=== PATIENT | male | born 1935 | race Caucasian/White ===

== ENCOUNTER 2016-10-25 16:59 | Inpatient (IN) | payer MEDICARE, OTHER ==
[~2016-10-25] VITALS: Ht 188 cm; Wt 80.7 kg
[2016-10-25] VITALS (8 sets, daily range): BP systolic 116–140; BP diastolic 64–87; PULSE 83–132; RESP 18–20; TEMP 97.8–97.9; O2SAT 97–100
[2016-10-25 17:38] LABS: MEAN CORPUSCULAR HGB CONC 29.8 % (32.0-36.0)
[2016-10-25] MEDS ORDERED: ATEN100T PO (17:38)
--- NOTE | 2016-10-25 17:38 | PD ---
HPI Chief Complaint: Cardiac Complaint Time Seen by Provider: 17:23 Travel History International Travel<30 days: No Contact w/Intl Traveler<30days: No Traveled to known affect area: No History of Present Illness HPI This 81-year-old male is complaining of shortness of breath. He says he been having increasing shortness of breath for the past 6 weeks. He says he can only walk a few steps before he gets short of breath. He has any history of atrial fibrillation for the last 2 years. He says it started when he was having surgery for a skin cancer on his left ear. He generally takes atenolol 100 mg once daily but he says that he forgot to take it today. He is not on any blood thinner. He stopped smoking about 50 or 60 years ago. He has a history of colon cancer and skin cancer which have been treated in the past. Colon cancer in . He has not been having any chest pain. He says he has passed out about 5 times in the last few weeks PFSH Past Medical History Influenza Vaccination: No Social History Alcohol Use: No Tobacco Use: No Substance Use: No Allergies-Medications (Allergen,Severity, Reaction): Coded Allergies: Penicillin (Verified Allergy, Severe, ANAPHALACTIC, 10/25/16) Reported Meds & Prescriptions Reported Meds & Active Scripts Active Reported Atenolol 100 Mg Tab 100 Mg PO DAILY Review of Systems General / Constitutional: No: Fever, Chills Eyes: No: Diploplia, Blurred Vision HENT: No: Headaches, Vertigo Cardiovascular: Positive: Palpitations, No: Chest Pain or Discomfort Respiratory: Positive: Shortness of Breath, No: Cough Gastrointestinal: No: Nausea, Vomiting Genitourinary: No: Frequency Musculoskeletal: Positive: Edema, No: Myalgias, Arthralgias Skin: No Rash, No Itching Neurologic: Positive: Weakness, Syncope Psychiatric: No: Anxiety Physical Exam Narrative GENERAL: Well-developed male. He appears quite pale SKIN: Warm and dry. HEAD: Atraumatic. Normocephalic. EYES: Pupils equal and round. No scleral icterus. No injection or drainage. ENT: No nasal bleeding or discharge. Mucous membranes pink and moist. NECK: Trachea midline. No JVD. CARDIOVASCULAR: Rapid irregular rate and rhythm. No murmur appreciated. RESPIRATORY: Coarse rales are present in the lower half of the chest bilaterally. GASTROINTESTINAL: Abdomen soft, non-tender, nondistended. Hepatic and splenic margins not palpable. MUSCULOSKELETAL: No obvious deformities. No clubbing. No cyanosis. Bilateral pedal edema NEUROLOGICAL: Awake and alert. No obvious cranial nerve deficits. Motor grossly within normal limits. Normal speech. PSYCHIATRIC: Appropriate mood and affect; insight and judgment normal. Data Data Last Documented VS Vital Signs Date Time Temp Pulse Resp B/P Pulse Ox O2 Delivery O2 Flow Rate FiO2 10/25/16 17:41 100 Room Air 10/25/16 17:20 97.9 128 20 140/80 Orders Complete Blood Count With Diff (10/25/16 17:36) Comprehensive Metabolic Panel (10/25/16 17:36) B-Type Natriuretic Peptide (10/25/16 17:36) Act Partial Throm Time (Ptt) (10/25/16 17:36) Prothrombin Time / Inr (Pt) (10/25/16 17:36) Magnesium (Mg) (10/25/16 17:36) Troponin I (10/25/16 17:36) Urinalysis - C+S If Indicated (10/25/16 17:36) Iv Access Insert/Monitor (10/25/16 17:36) Ecg Monitoring (10/25/16 17:36) Oximetry (10/25/16 17:36) Chest, Single Ap (10/25/16 17:36) Sodium Chloride 0.9% Flush (Ns Flush) (10/25/16 17:45) Furosemide Inj (Lasix Inj) (10/25/16 17:45) Atenolol (Tenormin) (10/25/16 17:45) Metoprolol Tartrate Inj (Lopressor Inj) (10/25/16 18:00) Labs Laboratory Tests Test 10/25/16 17:45 White Blood Count 7.5 TH/MM3 Red Blood Count 3.82 MIL/MM3 Hemoglobin 8.2 GM/DL Hematocrit 27.4 % Mean Corpuscular Volume 71.6 FL Mean Corpuscular Hemoglobin 21.3 PG Mean Corpuscular Hemoglobin 29.8 % Concent Red Cell Distribution Width 19.4 % Platelet Count 236 TH/MM3 Mean Platelet Volume 8.0 FL Neutrophils (%) (Auto) 77.5 % Lymphocytes (%) (Auto) 11.2 % Monocytes (%) (Auto) 9.4 % Eosinophils (%) (Auto) 1.2 % Basophils (%) (Auto) 0.7 % Neutrophils # (Auto) 5.8 TH/MM3 Lymphocytes # (Auto) 0.8 TH/MM3 Monocytes # (Auto) 0.7 TH/MM3 Eosinophils # (Auto) 0.1 TH/MM3 Basophils # (Auto) 0.1 TH/MM3 CBC Comment AUTO DIFF Prothrombin Time 11.1 SEC Prothromb Time International 1.0 RATIO Ratio Activated Partial 28.5 SEC Thromboplast Time Sodium Level 142 MEQ/L Potassium Level 3.6 MEQ/L Chloride Level 105 MEQ/L Carbon Dioxide Level 27.6 MEQ/L Anion Gap 9 MEQ/L Blood Urea Nitrogen 15 MG/DL Creatinine 0.98 MG/DL Estimat Glomerular Filtration 73 ML/MIN Rate Random Glucose 128 MG/DL Calcium Level 9.4 MG/DL Magnesium Level 2.1 MG/DL Total Bilirubin 1.0 MG/DL Aspartate Amino Transf 16 U/L (AST/SGOT) Alanine Aminotransferase 19 U/L (ALT/SGPT) Alkaline Phosphatase 126 U/L Troponin I LESS THAN 0.02 NG/ML B-Type Natriuretic Peptide 367 PG/ML Total Protein 7.6 GM/DL Albumin 3.5 GM/DL [facility] Medical Decision Making Medical Screen Exam Complete: Yes Emergency Medical Condition: Yes Medical Record Reviewed: Yes Differential Diagnosis Differential includes rapid atrial fibrillation, CHF, anemia Narrative Course EKG shows rapid atrial fibrillation. The patient forgot his medicine this morning and he has been given the oral atenolol and currently takes. I have also given him 5 mg of intravenous metoprolol. His hemoglobin has come back at 8.2. He has hyperchromic microcytic indices consistent with blood loss. A rectal exam was done. In spite of a fairly rigorous exam stool was obtained. He does have extensive hemorrhoids. Diagnosis Primary Impression: Congestive heart failure Qualified Code: I50.9 - Acute on chronic congestive heart failure, unspecified congestive heart failure type Additional Impressions: Rapid atrial fibrillation Anemia Qualified Code: D64.9 - Anemia, unspecified type Rich Earl MD Oct 25, 2016 17:38
[2016-10-25] MEDS ORDERED: FUROSEMIDE 40 MG/4 ML VIAL IVP ONE (17:45)
[2016-10-25] MEDS ORDERED: SODIUM CHLORIDE 0.9% FLUSH 5 ML FLUSH IVF PRN (17:45)
[2016-10-25] MEDS ORDERED: ATENOLOL 100 MG TAB PO ONE (17:45)
[2016-10-25 17:57] LABS: AUTOMATED NEUTROPHIL # 5.8 TH/MM3 (1.8-7.7); BASOPHIL # 0.1 TH/MM3 (0-0.2); BASOPHIL % 0.7 % (0.0-2.0); EOSINOPHIL # 0.1 TH/MM3 (0-0.4); EOSINOPHIL % 1.2 % (0.0-4.0); HEMATOCRIT 27.4 % (39.0-51.0); LYMPH % 11.2 % (9.0-44.0); LYMPHOCYTE # 0.8 TH/MM3 (1.0-4.8); MEAN CELL VOLUME 71.6 FL (80.0-100.0); MEAN CORPUSCULAR HEMOGLOBIN 21.3 PG (27.0-34.0); MONO % 9.4 % (0.0-8.0); NEUT % 77.5 % (16.0-70.0); PLATELET COUNT 236 TH/MM3 (150-450); RED BLOOD COUNT 3.82 MIL/MM3 (4.50-5.90); RED CELL DISTRIBUTION WIDTH 19.4 % (11.6-17.2); WHITE BLOOD COUNT 7.5 TH/MM3 (4.0-11.0)
[2016-10-25 17:59] LABS: HEMO FLAGS AUTO DIFF
[2016-10-25] MEDS ORDERED: METOPROLOL TARTRATE 5 MG/5 ML VIAL IV PUSH ONE (18:00)
[2016-10-25 18:04] LABS: CHLORIDE 105 MEQ/L (98-107); POTASSIUM 3.6 MEQ/L (3.5-5.1); SODIUM (NA) 142 MEQ/L (136-145)
[2016-10-25 18:07] LABS: ANION GAP 9 MEQ/L (5-15); BICARBONATE 27.6 MEQ/L (21.0-32.0)
[2016-10-25 18:08] LABS: BLOOD UREA NITROGEN 15 MG/DL (7-18); MAGNESIUM 2.1 MG/DL (1.5-2.5)
[2016-10-25 18:10] LABS: ALT (GPT) 19 U/L (12-78); APTT (PATIENT) 28.5 SEC (24.3-30.1); PROTHROMBIN TIME - PATIENT 11.1 SEC (9.8-11.6)
[2016-10-25 18:11] LABS: AST (GOT) 16 U/L (15-37); GLOMERULAR FILTRATION RATE 73 ML/MIN (>89)
[2016-10-25 18:13] LABS: ALKALINE PHOSPHATASE 126 U/L (45-117)
--- NOTE | 2016-10-25 18:23 | RADHPO ---
EXAM DATE/TIME: 10/25/2016 18:05 [facility] COMPARISON: No previous studies available for comparison. INDICATIONS : Tachycardia MEDICAL HISTORY : None. SURGICAL HISTORY : None. ENCOUNTER: Initial ACUITY: 1 day PAIN SCORE: 0/10 LOCATION: Bilateral chest FINDINGS: Mild basilar predominant interstitial opacities are seen in both lungs. There are also very small, bi lateral pleural effusions. No pneumothorax demonstrated. Heart size upper limits of normal. CONCLUSION: Nonspecific mild interstitial opacities and very small bilateral pleural effusions. Stefan Isabel MD on October 25, 2016 at 18:20 Board Certified Radiologist. This report was verified electronically.
[2016-10-25 18:39] LABS: OVALOCYTES 1+ (NORMAL); SCAN/DIFF AUTO DIFF CONFIRMED
[2016-10-25 18:52] LABS: BLOOD, URINE NEG (NEG); GLUCOSE,URINE NEG (NEG); KETONE, URINE NEG (NEG); NITRITE,URINE NEG (NEG)
[2016-10-25 18:56] LABS: URINE COLOR YELLOW (YELLW/STRAW)
[2016-10-25 18:58] LABS: COMMENT (UR) CULT NOT INDICATED; CULTURE IF INDICATED CULT NOT INDICATED; RBC, URINE 0-3 /hpf (0-3); SQUAMOUS EPITHELIAL CELL URINE 0-5 /hpf (0-5); WBC, URINE 0-2 /hpf (0-5)
[2016-10-25] MEDS ORDERED: GABA400C5 PO (19:05)
[2016-10-25] MEDS ORDERED: NALOXONE HCL 0.4 MG/ML AMP IV PRN (20:00)
[2016-10-25] MEDS ORDERED: SODIUM CHLORIDE 0.9% FLUSH 5 ML FLUSH FLUSH PRN (20:00)
[2016-10-25] MEDS: SODIUM CHLORIDE 0.9% FLUSH 5 ML FLUSH FLUSH SCH (21:00)
[2016-10-25 21:06] LABS: MEAN CORPUSCULAR HGB CONC 29.7 % (32.0-36.0)
[2016-10-26] VITALS (10 sets, daily range): BP systolic 98–127; BP diastolic 55–72; PULSE 66–103; RESP 18–24; TEMP 96.2–98.2; O2SAT 98–100
[2016-10-26 01:34] LABS: CREATINE KINASE 39 U/L (39-308)
[2016-10-26] MEDS ORDERED: FUROSEMIDE 20 MG/2 ML VIAL IV PUSH ONE (04:30)
[2016-10-26] MEDS ORDERED: GABAPENTIN 400 MG CAP PO PRN (04:30)
[2016-10-26] MEDS ORDERED: MORPHINE SULFATE 4 MG/ML INJ IV PUSH ONE (04:30)
[2016-10-26 06:53] LABS: AUTOMATED NEUTROPHIL # 5.9 TH/MM3 (1.8-7.7); BASOPHIL # 0.1 TH/MM3 (0-0.2); BASOPHIL % 0.8 % (0.0-2.0); EOSINOPHIL # 0.2 TH/MM3 (0-0.4); EOSINOPHIL % 2.3 % (0.0-4.0); LYMPH % 10.6 % (9.0-44.0); LYMPHOCYTE # 0.8 TH/MM3 (1.0-4.8); MEAN CELL VOLUME 70.1 FL (80.0-100.0); MEAN CORPUSCULAR HEMOGLOBIN 20.8 PG (27.0-34.0); MONO % 11.9 % (0.0-8.0); NEUT % 74.4 % (16.0-70.0); PLATELET COUNT 186 TH/MM3 (150-450); RED CELL DISTRIBUTION WIDTH 19.3 % (11.6-17.2); WHITE BLOOD COUNT 7.9 TH/MM3 (4.0-11.0)
[2016-10-26 06:56] LABS: HEMO FLAGS AUTO DIFF
[2016-10-26 06:58] LABS: CHLORIDE 102 MEQ/L (98-107); POTASSIUM 3.5 MEQ/L (3.5-5.1); SODIUM (NA) 143 MEQ/L (136-145)
[2016-10-26 07:54] LABS: SCAN/DIFF AUTO DIFF CONFIRMED
[2016-10-26 08:06] LABS: ANION GAP 11 MEQ/L (5-15); BICARBONATE 29.8 MEQ/L (21.0-32.0); BLOOD UREA NITROGEN 14 MG/DL (7-18); GLOMERULAR FILTRATION RATE 79 ML/MIN (>89)
[2016-10-26 08:07] LABS: CREATINE KINASE 34 U/L (39-308)
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
[2016-10-26] MEDS ORDERED: ENOXAPARIN SODIUM 40 MG/0.4 ML SYRINGE SQ SCH (09:00)
[2016-10-26] MEDS: ATENOLOL 100 MG TAB PO SCH (09:35)
[2016-10-26] MEDS: FAMOTIDINE 20 MG TAB PO SCH ×2 (09:35→21:06)
[2016-10-26] MEDS: SODIUM CHLORIDE 0.9% FLUSH 5 ML FLUSH FLUSH SCH ×2 (09:36→21:07)
[2016-10-26] MEDS: GABAPENTIN 400 MG CAP PO SCH ×2 (09:36→21:07)
[2016-10-26] MEDS ORDERED: diphenhydrAMINE HCL 25 MG CAP PO PRN (10:45)
[2016-10-26] MEDS ORDERED: ACETAMINOPHEN 325 MG TAB PO PRN (10:45)
[2016-10-26] MEDS ORDERED: SODIUM CHLOR 0.9% 250 ML INJ 250 ML IV ONE (10:45)
[2016-10-26] MEDS ORDERED: FUROSEMIDE 20 MG/2 ML VIAL IV ONE (11:00)
[2016-10-26 11:32] LABS: HEMATOCRIT 25.4 % (39.0-51.0)
[2016-10-26 12:41] LABS: TRANSFERRIN IRON PROFILE 244 MG/DL (200-360)
[2016-10-26 12:44] LABS: FERRITIN 10 NG/ML (26-388)
--- NOTE | 2016-10-26 13:09 | EKG ---
Date Performed: 10/25/2016 Time Performed: 17:16:32 PTAGE: 81 years EKG: Atrial fibrillation with rapid ventricular response Nonspecific intraventricular conduction delay Abnormal ECG NO PREVIOUS TRACING DOCTOR: Owen Hidalgo Interpretating Date/Time 10/26/2016 13:07:50
[2016-10-26] MEDS: ALPRAZolam 0.25 MG TAB PO PRN (13:52)
--- NOTE | 2016-10-26 15:26 | EKG ---
Date Performed: 10/26/2016 Time Performed: 05:29:18 PTAGE: 81 years EKG: Sinus rhythm Nonspecific intraventricular conduction delay Poor R wave progression - probable normal variant Abno rmal ECG PREVIOUS TRACING : 10/25/2016 23.24 No significant change from previous tracing noted. DOCTOR: Owen Hidalgo Interpretating Date/Time 10/26/2016 15:25:23
--- NOTE | 2016-10-26 15:32 | EKG ---
Date Performed: 10/25/2016 Time Performed: 23:24:42 PTAGE: 81 years EKG: Possible ectopic atrial tachycardia Nonspecific intraventricular conduction delay Abnormal ECG NO PREVIOUS TRACING DOCTOR: Owen Hidalgo Interpretating Date/Time 10/26/2016 15:30:43
--- NOTE | 2016-10-26 17:50 | RADHPO ---
EXAM DATE/TIME: 10/26/2016 17:06 [facility] COMPARISON: No previous studies available for comparison. INDICATIONS : Bilateral lower extremity edema. MEDICAL HISTORY : Hypertension. Gastroesophageal reflux disease. Syncope. Dyspnea. Colon and basal cell cancer. Melano ma. Peripheral neuropathy. SURGICAL HISTORY : Appendectomy. ENCOUNTER: Initial ACUITY: 1 day PAIN SCORE: 0/10 LOCATION: Bilateral legs. TECHNIQUE: Venous ultrasound of the left and right leg was performed from the inguinal ligament to the proximal calf. Real-time, color Doppler and spectral tracing, compression and augmentation techniques were us ed. FINDINGS: RIGHT LEG: There is normal compressibility of the deep venous system from the inguinal region to the proximal ca lf. No echogenic clot is seen in the lumen of the common femoral, femoral, popliteal, and posterior tibial veins. There is a normal response of the venous system to proximal and distal augmentation an d respiration. LEFT LEG: There is normal compressibility of the deep venous system from the inguinal region to the proximal ca lf. No echogenic clot is seen in the lumen of the common femoral, femoral, popliteal, and posterior tibial veins. There is a normal response of the venous system to proximal and distal augmentation an d respiration. CONCLUSION: No evidence of DVT. Ayaz Jefferson MD on October 26, 2016 at 17:48 Board Certified Radiologist. This report was verified electronically.
[2016-10-26 20:25] LABS: REVIEW FLAG FINAL
[2016-10-26] MEDS: diphenhydrAMINE HCL 25 MG CAP PO SCH (21:07)
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
--- NOTE | 2016-10-26 22:37 | MB ---
cc: GARRISON BURCH MD DATE OF CONSULTATION 10/26/16 1935 REASON FOR CONSULTATION Shortness of breath. HISTORY OF PRESENT ILLNESS 81-year-old male with past medical history significant for atrial fibrillation, colon cancer status post resection, COPD that presented to the hospital for evaluation of progressive worsening of shortness of breath for the last six weeks. The patient reports that shortness of breath is significantly worsened by minimal exertion and is associated with some swelling of the extremities. He reports being compliant with medication therapy. 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 During the hospitalization, he was be profoundly anemic and he received a transfusion today as well as IV Lasix for which he reports feeling better from the shortness of breath. Currently, the patient denies any palpitations, chest pain, PND, fevers, chills, nausea, vomiting, diarrhea, weight loss, hematochezia, melena or hematuria. REVIEW OF SYSTEMS Negative except for what is mentioned in HPI. PAST MEDICAL HISTORY 1. Atrial fibrillation 2. Peripheral neuropathy 3. history of colon cancer, 4. Skin cancer, 5. Chronic obstructive pulmonary disease PAST SURGICAL HISTORY Partial colectomy MEDICATIONS 1. Atenolol at 100 mg p.o. daily 2. Gabapentin 400 mg p.o. b.i.d. ALLERGIES PENICILLIN FAMILY HISTORY Noncontributory. SOCIAL HISTORY Former smoker. He denies alcohol consumption or illicit drug use. PHYSICAL EXAMINATION VITAL SIGNS: Temperature is 97.1, respiratory rate 18, heart rate 9, blood pressure 114/62, O2 sat 99% on room air. Telemetry showing atrial fibrillation with adequate ventricular response. GENERAL: He is awake, alert, oriented x3 in no acute distress. NECK: No JVD, no carotid bruits. HEART: Irregularly irregular, no murmurs, rubs or gallops appreciated. LUNGS: Clear to auscultation bilaterally. No wheezes, no rhonchi, no rales. ABDOMEN: Soft, nontender, nondistended. Positive bowel sounds Extremities: +1 pitting edema. LABORATORY DATA CBC - hemoglobin 7.8, hematocrit of 25, platelet count 186, INR 1 Chemistries - sodium 143, potassium 3.5, BUN 14, creatinine 0.92 iron 14, TIBC 4.1. Ferritin 10, troponin less than 0.02 x2. BNP 367, TSH 1.9. Urinalysis unremarkable. Lower extremity ultrasound negative for DVT. Chest x-ray - Nonspecific mild interstitial opacities and very small bilateral pleural effusions. CARDIOLOGY STUDIES EKG - atrial fibrillation with nonspecific ST changes. ASSESSMENT/PLAN 81-year-old male with history of colon cancer presenting with shortness of breath in the setting of severe anemia. He received blood transfusion with resolution of symptoms. GUIAC negative. [facility] There is no data of cardiac ischemia workups in the past here at [facility]. Atrial fibrillation rate controlled on PO medications. He is not on oral anticoagulation given severe anemia. Regarding SOB likely due to anemia and a mild heart failure component which resolved after transfusion. and IV diuresis. Patient has history of colon cancer, consider colorectal and GI consult for anemia workup. Recommendations: 1. Continue rate control 2. Not a candidate for OAC given anemia 3. 2D echocardiogram 4. Anemia workup 5. IV diuresis 6. GI and Colorectal consult Thank you for the opportunity to take part in the care of this patient. We will be available on a p.r.n. basis for any further questions or concerns. MD KELLEY Browning/ /8:24 PM /10:20 PM MTDD
[2016-10-27] VITALS (10 sets, daily range): BP systolic 106–133; BP diastolic 63–75; PULSE 95–124; RESP 18–22; TEMP 97.8–98.2; O2SAT 98–100
[2016-10-27] MEDS: ALPRAZolam 0.25 MG TAB PO PRN ×2 (03:16→21:14)
[2016-10-27] MEDS ORDERED: DIATRIZOATE MEGLUM/DIATRIZOATE SOD 9 ML CUP PO ONE (04:00)
[2016-10-27 06:31] LABS: AUTOMATED NEUTROPHIL # 7.1 TH/MM3 (1.8-7.7); BASOPHIL # 0.1 TH/MM3 (0-0.2); BASOPHIL % 0.6 % (0.0-2.0); EOSINOPHIL # 0.4 TH/MM3 (0-0.4); EOSINOPHIL % 4.3 % (0.0-4.0); HEMATOCRIT 27.5 % (39.0-51.0); LYMPH % 8.6 % (9.0-44.0); LYMPHOCYTE # 0.8 TH/MM3 (1.0-4.8); MEAN CELL VOLUME 72.1 FL (80.0-100.0); MEAN CORPUSCULAR HEMOGLOBIN 21.9 PG (27.0-34.0); MEAN CORPUSCULAR HGB CONC 30.4 % (32.0-36.0); MONO % 7.8 % (0.0-8.0); NEUT % 78.7 % (16.0-70.0); PLATELET COUNT 192 TH/MM3 (150-450); RED BLOOD COUNT 3.82 MIL/MM3 (4.50-5.90); RED CELL DISTRIBUTION WIDTH 18.7 % (11.6-17.2); WHITE BLOOD COUNT 9.1 TH/MM3 (4.0-11.0)
[2016-10-27 06:40] LABS: HEMO FLAGS AUTO DIFF
[2016-10-27 06:43] LABS: POTASSIUM 3.6 MEQ/L (3.5-5.1)
[2016-10-27 06:50] LABS: BICARBONATE 31.6 MEQ/L (21.0-32.0); MAGNESIUM 1.6 MG/DL (1.5-2.5)
[2016-10-27] MEDS ORDERED: IOHEXOL 350 MG/ML 10 ML VIAL (for RAD DIAG) IV ONE (07:04)
--- NOTE | 2016-10-27 07:33 | RADHPO ---
EXAM DATE/TIME: 10/27/2016 06:45 [place] COMPARISON: No previous studies available for comparison. INDICATIONS : Anemic. History of colon cancer. IV CONTRAST: 75 cc Omnipaque 350 (iohexol) IV ORAL CONTRAST: Prescribed oral contrast ingested. RADIATION DOSE: 13.05 CTDIvol (mGy) MEDICAL HISTORY : Hypertension. Carcinoma, colon. SURGICAL HISTORY : Appendectomy. ENCOUNTER: Initial ACUITY: 1 day PAIN SCALE: 0/10 LOCATION: abdomen/pelvis TECHNIQUE: Volumetric scanning of the abdomen and pelvis was performed. Using automated exposure control and ad justment of the mA and/or kV according to patient size, radiation dose was kept as low as reasonably achievable to obtain optimal diagnostic quality images. FINDINGS: LOWER LUNGS: There are small bilateral pleural effusions. Mild scarring is noted at both lung bases. LIVER: Homogeneous density without lesion. There is no dilation of the biliary tree. The patient is status post cholecystectomy. SPLEEN: Normal size without lesion. There is a small partially calcified splenic artery aneurysm near the mid line measuring 12 x 7 mm. PANCREAS: Within normal limits. KIDNEYS: Normal in size and shape. There is no mass, stone or hydronephrosis. ADRENAL GLANDS: Within normal limits. VASCULAR: There is no aortic aneurysm. BOWEL/MESENTERY: The stomach, small bowel, and colon demonstrate no acute abnormality. There is no free intraperitone al air or fluid. There are postsurgical changes involving the right colon with anastomotic alaina. ABDOMINAL WALL: Within normal limits. RETROPERITONEUM: There is no lymphadenopathy. BLADDER: No wall thickening or mass. REPRODUCTIVE: The prostate gland is mildly enlarged with benign-appearing calcifications. There is a mild impressio n on the bladder base. INGUINAL: There is no lymphadenopathy or hernia. MUSCULOSKELETAL: Within normal limits for patient age. Scoliosis and degenerative changes are present in the lumbar sp ine. CONCLUSION: 1. Small bilateral pleural effusions. 2. Postsurgical changes involving the right colon consistent with partial colectomy. The bowel gas pa ttern is unremarkable. 3. Small partially calcified splenic artery aneurysm. 4. Status post cholecystectomy. 5. No evidence of metastatic disease. Maury Harrington MD on October 27, 2016 at 7:28 Board Certified Radiologist. This report was verified electronically.
[2016-10-27 07:35] LABS: SCAN/DIFF AUTO DIFF CONFIRMED
--- NOTE | 2016-10-27 08:16 | HHI.GIFU ---
Subjective Remarks Patient appears to be angry and upset and has little interaction and has no questions and he is poorly cooperative Objective Vitals I&O Vital Signs Date Time Temp Pulse Resp B/P Pulse Ox O2 Delivery O2 Flow Rate FiO2 10/27/16 03:31 122 10/27/16 03:11 122 22 106/63 100 10/27/16 00:00 97.8 95 18 118/71 100 10/26/16 20:30 83 10/26/16 20:00 97.9 98 18 98/55 100 10/26/16 18:15 97.1 99 18 114/62 99 10/26/16 16:00 97.1 66 20 123/67 100 10/26/16 14:47 18 10/26/16 14:35 98.0 86 18 110/61 100 10/26/16 14:16 96.2 103 18 127/72 10/26/16 12:00 97.5 96 24 109/64 100 I/O 10/26/16 10/26/16 10/26/16 10/27/16 10/27/16 10/27/16 07:00 15:00 23:00 07:00 15:00 23:00 Intake Total 60 ml 930 ml Output Total 500 ml 950 ml 400 ml 850 ml Balance -440 ml -20 ml -400 ml -850 ml Intake Oral 60 ml 930 ml Output Urine Total 500 ml 950 ml 400 ml 850 ml # Voids 1 # Bowel Movements 0 1 0 Laboratory Laboratory Tests Test 10/26/16 10/26/16 10/26/16 10/27/16 10:55 11:15 19:45 06:00 Blood Type A POSITIVE A POSITIVE Crossmatch Leukocyte-Reduced Red Blood Cells Blood Bank Comment Hemoglobin 7.8 8.8 8.4 Hematocrit 25.4 29.0 27.5 Carcinoembryonic Antigen 3.2 White Blood Count 9.1 Red Blood Count 3.82 Mean Corpuscular Volume 72.1 Mean Corpuscular Hemoglobin 21.9 Mean Corpuscular Hemoglobin 30.4 Concent Red Cell Distribution Width 18.7 Platelet Count 192 Mean Platelet Volume 8.1 Neutrophils (%) (Auto) 78.7 Lymphocytes (%) (Auto) 8.6 Monocytes (%) (Auto) 7.8 Eosinophils (%) (Auto) 4.3 Basophils (%) (Auto) 0.6 Neutrophils # (Auto) 7.1 Lymphocytes # (Auto) 0.8 Monocytes # (Auto) 0.7 Eosinophils # (Auto) 0.4 Basophils # (Auto) 0.1 CBC Comment AUTO DIFF Differential Comment AUTO DIFF CONFIRMED Sodium Level 138 Potassium Level 3.6 Chloride Level 99 Carbon Dioxide Level 31.6 Anion Gap 7 Blood Urea Nitrogen 16 Creatinine 0.96 Estimat Glomerular Filtration 75 Rate Random Glucose 99 Calcium Level 8.4 Magnesium Level 1.6 Date/Time Procedure Status Source Growth 10/26/16 08:40 Stool Occult Blood (SKY) - Final Complete Stool Stool HEMOCCULT NEGATIVE Imaging Last Impressions Lower Extremity Ultrasound 10/26/16 0000 Signed Impressions: Service Date/Time: Wednesday, October 26, 2016 17:06 - CONCLUSION: No evidence of DVT. Ayaz Jefferson MD Abdomen/Pelvis CT 10/26/16 0000 Signed Impressions: Service Date/Time: Thursday, October 27, 2016 06:45 - CONCLUSION: 1. Small bilateral pleural effusions. 2. Postsurgical changes involving the right colon consistent with partial colectomy. The bowel gas pattern is unremarkable. 3. Small partially calcified splenic artery aneurysm. 4. Status post cholecystectomy. 5. No evidence of metastatic disease. Maury Harrington MD Chest X-Ray 10/25/16 9026 Signed Impressions: Service Date/Time: Tuesday, October 25, 2016 18:05 - CONCLUSION: Nonspecific mild interstitial opacities and very small bilateral pleural effusions. Stefan Isabel MD Physical Exam HEENT: normocephalic; atraumatic; no jaundice. Throat is clear. NECK: Neck is supple, CHEST: Chest is clear to auscultation and percussion. CARDIAC: Regular rate and rhythm with no murmur gallop or rubs. ABDOMEN: Soft, nondistended, nontender; no hepatosplenomegaly; bowel sounds are present in all four quadrants. EXTREMITIES: No clubbing, cyanosis, or edema. SKIN: Normal; no rash; no jaundice. 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 Assessment and Plan Plan Iron deficiency anemia of unclear etiology and guaiac negative History of colon cancer with an unremarkable CT of the abdomen from a GI perspective Celiac panel pending Patient again advised to undergo an EGD and a colonoscopy to further evaluate for iron deficiency anemia I had a lengthy discussion with the patient regarding this issue but patient is undecided at this point Continue with current supportive care We will sign off and please reconsult as necessary Arnulfo Gaitan MD Oct 27, 2016 08:16
[2016-10-27] MEDS: SODIUM CHLORIDE 0.9% FLUSH 5 ML FLUSH FLUSH SCH ×2 (09:26→21:06)
[2016-10-27] MEDS: GABAPENTIN 400 MG CAP PO SCH ×2 (09:27→21:14)
[2016-10-27] MEDS: MAGNESIUM SULFATE 1 GM PREMIX 100 ML IV SCH ×2 (09:27→09:33)
[2016-10-27] MEDS: FAMOTIDINE 20 MG TAB PO SCH ×2 (09:27→21:14)
[2016-10-27] MEDS: ATENOLOL 100 MG TAB PO SCH (09:27)
--- NOTE | 2016-10-27 09:27 | MB ---
cc: KELLY CORTÉS SAUD E. M.D. COX-ALOMAR, PEDRO TOLLAND,DEREK Gaming M.D. DATE OF CONSULTATION 10/26/2016 CHIEF COMPLAINT Shortness of breath. HISTORY OF PRESENT ILLNESS This patient is well-known to me for the last 25 years. About 23 years ago I did a right colectomy on him for colon carcinoma and he is without evidence of any disease at this time. The patient came into the hospital acutely with shortness of breath. He was found to be profoundly anemic with a hemoglobin in the 7 gram range. This is chronic. He says it has occurred over the last six weeks. He does have moderate to severe chronic obstructive pulmonary disease. He is under really no treatment for this by pulmonology or cardiology. He does see a [place] physician for his everyday care. I saw him about a year ago and recommended a follow-up colonoscopy and he did not follow through with that at that time. The patient is past-due for his follow-up colonoscopy. I am quite sure that he has no recurrent carcinoma from the lesion resected 23 years ago but he could have a new lesion present in his colon. He was evaluated by Drs. Lang and Arnie who recommended an upper GI endoscopy and colonoscopy on him. He was transfused 2 units of blood. The patient says that he has not seen any rectal bleeding and his hemoccult studies are negative thus far. The patient was seen by Dr. Thomas from the cardiology department who says that his symptoms have mostly resolved with transfusion; however, the patient still is complaining of shortness of breath. Dr. Gaitan has signed off the case because the patient does not want to have any endoscopy studies done. As I said, he is well-known to me and says that at this time he is still having some shortness of breath and is on oxygen at rest. His saturations are above 90%. He denies any abdominal pain. He does say that he has intermittent chronic diarrhea which he describes as one stool a day but on the liquid side. He does take an Imodium sometimes once or twice a day and he has done this for many years and this is really unchanged from his previous exams. PAST MEDICAL HISTORY, SOCIAL HISTORY AND FAMILY HISTORY, REVIEW OF SYSTEMS Otherwise negative. He did lose his about a year ago or so. PHYSICAL EXAMINATION GENERAL: Well-developed, well-nourished, thin male in no acute distress. SKIN: Warm and dry. HEENT: Extraocular muscles intact. NECK: Supple. ABDOMEN: Soft, nontender. No masses. RECTAL: Exam was not done. EXTREMITIES: Range of motion within normal limits. NEUROLOGIC: Grossly normal. IMPRESSION Severe anemia with iron deficiency. PLAN I would recommend improving his COPD and cardiac status and possibly transfusing him another 2 units of blood to get his hemoglobin up around the 9 or 10 range. I would plan on doing a colonoscopy on him as an outpatient once he is stabilized. There is certainly no emergency to this, this is a chronic anemia and he has been putting this off for sometime. I will continue to follow. MD LUI Coates/SHAILESH /8:49 AM /9:15 AM
[2016-10-27] MEDS ORDERED: DIGOXIN 0.25 MG TAB PO ONE (09:45)
[2016-10-27] MEDS: POTASSIUM CHLORIDE 20 MEQ CONTROLLED RELEASE TAB PO SCH (10:12)
[2016-10-27] MEDS: FUROSEMIDE 40 MG TAB PO SCH (10:12)
--- NOTE | 2016-10-27 10:49 | EC ---
Study Study Date:10/27/2016 STUDY CONCLUSIONS SUMMARY - Procedure narrative: Image quality was fair. Technically difficult study due to patient in atrial fibrillation with rapid ventricular response. - Left ventricle: The cavity size was normal. Wall thickness was normal. Systolic function was severely reduced. The estimated ejection fraction was in the range of 25% to 30%. Diffuse hypokinesis. The study is not technically sufficient to allow evaluation of LV diastolic function. - Aortic valve: Valve area: 2.12cm^2(VTI). Valve area: 2.47cm^2 (Vmax). - Mitral valve: Mildly calcified annulus. Mild regurgitation. - Pulmonary arteries: PA peak pressure: 37mm Hg (S). If LV function is below 40, please consider prescribing an ACEI or ARB or document rationale for non-use. PROCEDURE DATA STUDY STATUS: Elective. Procedure: Transthoracic echocardiography. Image quality was fair. Technically difficult study due to patient in atrial fibrillation with rapid ventricular response. Scanning was performed from the parasternal, apical, and subcostal acoustic windows. Study completion: The patient tolerated the procedure well. Transthoracic echocardiography. M-mode, complete 2D, complete spectral Doppler, and color Doppler. Height: Height: 74in. Weight: Weight: 178.6lb. Body mass index: BMI: 23kg/m^2. Body surface area: BSA: 2.07m^2. Patient status: Inpatient. CARDIAC ANATOMY LEFT VENTRICLE: The cavity size was normal. Wall thickness was normal. There was no hypertrophy. Systolic function was severely reduced. The estimated ejection fraction was in the range of 25% to 30%. Diffuse hypokinesis. The study is not technically sufficient to allow evaluation of LV diastolic function. AORTIC VALVE: The valve appears to be grossly normal. Probably trileaflet. Doppler: There was no stenosis. No significant regurgitation. Valve area: 2.12cm^2(VTI). Indexed valve area: 1.02cm^2/m^2 (VTI). Valve area: 2.47cm^2 (Vmax). Indexed valve area: 1.19cm^2/m^2 (Vmax). Mean gradient: 5mm Hg (S). MITRAL VALVE: Mildly calcified annulus. Doppler: There was no evidence for stenosis. Mild regurgitation. Peak gradient: 7mm Hg (D). LEFT ATRIUM: The atrium was at the upper limits of normal in size. ATRIAL SEPTUM: No defect or patent foramen ovale was identified. RIGHT VENTRICLE: The cavity size was normal. Systolic function was normal. PULMONIC VALVE: Not well visualized. Doppler: There was no evidence for stenosis. No significant regurgitation. TRICUSPID VALVE: The valve appears to be grossly normal. Doppler: There was no evidence for stenosis. Trace to mild regurgitation. PERICARDIUM: There was no pericardial effusion. Patient weight: 178.6lb _Ejection fraction:_ 65-75% _Fractional shortening:_ 32% up to 5Kg 5-11.5Kg 11.6-22.9Kg 23-45Kg 45-57Kg Aortic Root 7-13 <17 13-22 17-27 17-27 LA diam 6-13 <23 24-38 33-47 37-40 RVID 10-17 7-15 7-15 7-18 8-17 LVIDd 12-22 <32 24-38 33-47 37-40 LVPW 2-4 3-6 5-7 6-8 7-8 IVS 2-4 3-6 5-7 6-8 7-8 BASIC MEASUREMENTS ADULT NORMAL Left ventricle LV internal dimension, ED, chordal *53.2 mm 43-52 level, PLAX LV internal dimension, ES, chordal *44.8 mm 23-38 level, PLAX Fractional shortening, chordal level, *16 % >29 PLAX LV posterior wall thickness, ED 8.69 mm IVS/LVPW ratio, ED 0.99 <1.3 Volume, ED, MOD, 1-plane 92 ml Volume, ES, MOD, 1-plane 78 ml Ejection fraction, MOD, 1-plane 15 % Stroke volume, MOD, 1-plane 14 ml Volume index, ED, MOD, 1-plane 44 ml/m^2 Volume index, ES, MOD, 1-plane 38 ml/m^2 Stroke index, MOD, 1-plane 6.8 ml/m^2 Volume, ED, MOD, 2-plane 147 ml Volume, ES, MOD, 2-plane 109 ml Ejection fraction, MOD, 2-plane 26 % Stroke volume, MOD, 2-plane 38 ml Volume index, ED, MOD, 2-plane 71 ml/m^2 Volume index, ES, MOD, 2-plane 53 ml/m^2 Stroke index, MOD, 2-plane 18.4 ml/m^2 Ventricular septum Septal thickness, ED 8.61 mm Aortic valve Leaflet separation 20 mm 15-26 Aorta Root diameter, ED 35 mm Left atrium Anterior-posterior dimension 34 mm Anterior-posterior dimension index 1.64 cm/m^2 <2.2 BASIC MEASUREMENTS ADULT NORMAL Aortic valve Leaflet separation 20 mm 15-26 DOPPLER MEASUREMENTS ADULT NORMAL Main pulmonary artery Pressure, S *37 mm Hg =30 Aortic valve Peak velocity, S 134 cm/s Mean velocity, S 104 cm/s VTI, S 20 cm Mean gradient, S 5 mm Hg Valve area, VTI 2.12 cm^2 Valve area index, VTI 1.02 cm^2/m^2 Valve area, Vmax 2.47 cm^2 Valve area index, Vmax 1.19 cm^2/m^2 Mitral valve Peak E-wave velocity 136 cm/s Deceleration time *111 ms 150-230 Peak gradient, D 7 mm Hg Tricuspid valve Regurgitant peak velocity 293 cm/s Peak RV-RA gradient, S 34 mm Hg Maximal regurgitant velocity 293 cm/s Systemic veins Estimated CVP 5 mm Hg Right ventricle RV pressure, S *39 mm Hg <30 Pulmonic valve Peak velocity, S 64.3 cm/s LEGEND: Mean values are shown as u=mean value. Asterisk (*) dyson values outside specified normal range. Prepared and signed by Robert Tarango [id number]
--- NOTE | 2016-10-27 11:40 | HHI.PR ---
Subjective Remarks Patient states that he is not feeling any better. Heart rate in the 120s this morning. Objective Vitals Vital Signs Date Time Temp Pulse Resp B/P Pulse Ox O2 Delivery O2 Flow Rate FiO2 10/27/16 08:02 124 10/27/16 08:00 98.2 115 20 119/68 100 10/27/16 03:31 122 10/27/16 03:11 122 22 106/63 100 10/27/16 00:00 97.8 95 18 118/71 100 10/26/16 20:30 83 10/26/16 20:00 97.9 98 18 98/55 100 10/26/16 18:15 97.1 99 18 114/62 99 10/26/16 16:00 97.1 66 20 123/67 100 10/26/16 14:47 18 10/26/16 14:35 98.0 86 18 110/61 100 10/26/16 14:16 96.2 103 18 127/72 10/26/16 12:00 97.5 96 24 109/64 100 I/O 10/26/16 10/26/16 10/26/16 10/27/16 10/27/16 10/27/16 07:00 15:00 23:00 07:00 15:00 23:00 Intake Total 60 ml 930 ml 240 ml Output Total 500 ml 950 ml 400 ml 850 ml Balance -440 ml -20 ml -400 ml -850 ml 240 ml Intake Oral 60 ml 930 ml 240 ml Output Urine Total 500 ml 950 ml 400 ml 850 ml # Voids 1 # Bowel Movements 0 1 0 Result Diagram: 10/27/16 0600 10/27/16 0600 Objective Remarks GENERAL: Well-nourished, well-developed elderly male pale. Patient. SKIN: Warm and dry. HEAD: Normocephalic. EYES: No scleral icterus. No injection or drainage. NECK: Supple, trachea midline. No JVD or lymphadenopathy. CARDIOVASCULAR: Irregularly irregular rate and rhythm without murmurs, gallops, or rubs. RESPIRATORY: Breath sounds equal bilaterally. Mildly increased work of breathing. Crackles at the bases bilaterally. GASTROINTESTINAL: Abdomen soft, non-tender, nondistended. EXTREMITIES: 1+ pedal edema. NEUROLOGICAL: Awake, alert, and oriented x 3. Non-focal. A/P Assessment and Plan 81-year-old male with past medical history of atrial fibrillation, colon cancer status post resection and peripheral neuropathy presents to [facility] ED with complaints of progressive shortness of breath 6 weeks. -Shortness of breath. Likely multifactorial due to CHF/cardiomyopathy, anemia, COPD and atrial fibrillation with uncontrolled heart rate. Continue to address measures below. -Mild acute systolic CHF exacerbation - BMP was only marginally elevated at 360 , chest x-ray did show some mild interstitial opacities. He received Lasix 60 mg IV in the ED. Continue Lasix by mouth. 2-D echocardiogram shows ejection fraction of 25-30%. I will place him on metoprolol 50 mg every 8 hours which should also help with his rate control. Also start enalapril low-dose and monitor his blood pressure closely as it tends to run low. Potassium supplementation. Digoxin given this morning due to the rapid heart rate. I discussed with cardiology Dr. Royal. The patient saw Dr. bernal several years ago on the hospital and was like to follow up with him after discharge. I will ask the casework specialist to arrange an appointment. -Anemia in a patient with history of colon cancer resection. Appreciate GI and Dr. Mora's input. Hemoccult was negative. Patient gives no history of hematochezia or melanotic stools. His iron is low. Status post transfusion of 1 unit packed red blood cells and hemoglobin is now at 8. Will check B-[address] Mora is planning for colonoscopy as outpatient. I will also ask hematology to see him. -Atrial fibrillation with rapid ventricular rate. Start digoxin. DC atenolol and start metoprolol 50 mg by mouth every 8 hours. If rate still uncontrolled may need to start Cardizem drip. Due to the on certain etiology of the anemia, Dr. Royal recommends holding off on anticoagulation until outpatient colonoscopy has been performed. Intermittent chest pain - Continuous cardiac monitoring. Troponin negative 3. COPD - c/w supplemental oxygen. Duonebs prn. Walk test today as he is not on home oxygen and and I suspect he will need it. Intermittent chest pain - Continuous cardiac monitoring. Troponin negative 3. H/O colon cancer - s/p partial colectomy followed by chemotherapy with follow up negative colonoscopies. No e/o dark/bloody/tarry stools. Peripheral neuropathy - Patient will be resumed on his home dose of Gabapentin DVT/GI prophylaxis - Margotnox/Pepcid Rani Valadez MD Oct 27, 2016 11:40
--- NOTE | 2016-10-27 12:32 | HHI.FF ---
Face to Face Verification Diagnosis: (1) Congestive heart failure (2) Anemia (3) Rapid atrial fibrillation Physical Therapy Order: Evaluate and Treat Home Health Nursing Order: Medical education Signs/symptoms of disease process CHF education Oxygen administration education Nursing assessment with vital signs I have seen patient Eze Solares on 10/27/16. My clinical findings support the need for the requested home health care services because: Ltd mobility - disease progression Patient has SOB Deconditioned w/ increased weakness Med compliance is questionable Need for psychosocial assistance I certify that my clinical findings support that this patient is homebound because: Hx COPD- exertion dyspnea/weakness Need for psychosocial assistance Poor cardiac reserve Rani Valadez MD Oct 27, 2016 12:32
[2016-10-27] MEDS: METOPROLOL TARTRATE 50 MG TAB PO SCH ×2 (13:08→21:14)
[2016-10-27] MEDS ORDERED: METOPROLOL TARTRATE 50 MG TAB PO SCH (14:00)
[2016-10-27] MEDS ORDERED: IRON SUCROSE 100 MG/5 ML VIAL IV PUSH ONE (17:30)
[2016-10-27] MEDS ORDERED: IRON SUCROSE INJ 300 MG in SODIUM CHLORIDE 0.9% INJ 100 ML IV ONE (20:00)
[2016-10-27 21:08] LABS: MEAN CORPUSCULAR HGB CONC 29.9 % (32.0-36.0)
[2016-10-27] MEDS: FERROUS SULFATE 325 MG (65 MG ELEMENTAL IRON) TAB PO SCH (21:14)
[2016-10-27] MEDS: diphenhydrAMINE HCL 25 MG CAP PO SCH (22:53)
--- NOTE | 2016-10-27 23:37 | MB ---
cc: JAMI WALLACE MD, ABDUL J. M.D. DATE OF CONSULTATION: 10/27/2016 REQUESTING PHYSICIAN: Dr. Wallace REASON FOR CONSULTATION: Evaluation of iron deficiency anemia HISTORY OF PRESENT ILLNESS: Kleber is an 81 year-old very pleasant white male. He is being followed up by Dr. Baker at the [facility]. He has a history of chronic atrial fibrillation, COPD, and peripheral neuropathy. He also has a history of colon cancer which was diagnosed in early and underwent right hemicolectomy. The patient did not require any chemotherapy. The patient came into the emergency room complaining of shortness of breath, dyspnea on exertion, swelling of both lower legs and syncopal episode. In the emergency room the patient was found to be in rapid atrial fibrillation. CBC showed severe anemia. The patient is admitted to the hospital. CBC on admission showed white count 7.5, hemoglobin 8.2, hematocrit 27.4, platelet count 236, MCV is low at 71.6, MCHC is low at 21.3. Anemia studies were ordered. B12 is normal at 672. His iron studies showed that he has severe iron deficiency with a serum ferritin of only 10, iron saturation is low at 4.1, serum iron is low at 14, and TIBC is normal at 342. I have been asked to see the patient for the iron deficiency anemia. The patient denies any previous history of anemia that he knows of. He states that he had a blood test at the [facility] by Dr. Baker every three months and he was not told that he was anemic. He denies any blood in the stool. He denies any dark stools. His stools are heme negative. GI has been consulted. They have recommended to do upper endoscopy and colonoscopy which the patient had declined. Dr. Gonzalez his colorectal surgeon has been consulted as well. Dr. Gonzalez recommended that the patient needs to be more stable to undergo colonoscopy. He does not think there is any urgency or emergency to do the colonoscopy while he is in the hospital. This can be done in the office and he will schedule a follow up appointment for the colonoscopy. Celiac disease panel has been ordered and the results are still pending. The patient was started on oral iron. The patient had received 1 unit of blood transfusion and his hemoglobin has improved to 8.4. He has COPD and he is short of breath. Echo shows LVEF 25%. He has CHF. Cardiology also has been consulted. They did not recommend any specific therapy. The rest of review of systems is negative. PAST MEDICAL HISTORY 1. Chronic atrial fibrillation. 2. History of colon cancer in the s. 3. Peripheral neuropathy. 4. History of skin cancer. PAST SURGICAL HISTORY Right hemicolectomy for colon cancer. Injury to the left leg during service. ALLERGIES ATENOLOL AND GABAPENTIN FAMILY HISTORY The family history is noncontributory. SOCIAL HISTORY The patient used to smoke cigarettes, a pack a day for many years. However, he quit about 20 years ago, he does not drink alcohol. PHYSICAL EXAMINATION: The patient is a well-developed elderly white male in mild respiratory distress. VITAL SIGNS: Temperature 98.2, heart rate is 107, blood pressure is 116/70. HEENT: PERRLA, EOMI, anicteric. No oral lesions noted. Neck is supple. There is no cervical, supraclavicular, axillary lymphadenopathy noted. Lungs: Decreased breath sounds on both sides with scattered wheezing. Heart: Irregularly irregular. Abdomen is soft, nontender. No hepatosplenomegaly. Extremities: Mild pedal edema. Neurology: Awake, alert, oriented x3. Skin: No significant lesions are noted. ASSESSMENT 1. Severe iron deficiency anemia. No evidence of GI bleeding. The most likely cause of iron deficiency is lack of iron absorption. 2. COPD 3. Syncopal episode probably related to rapid atrial fibrillation and severe anemia. 4. History of atrial fibrillation and was admitted with rapid atrial fibrillation. 5. History of colon cancer in early . 6. CHF PLAN I have reviewed his available records and I have discussed with the patient regarding the iron deficiency anemia. The CBC on admission is normal except the hemoglobin is 8.2, hematocrit is 27.4, MCV is 71. His hemoglobin dropped down to 7.2. He received one unit of PRBC yesterday. CBC today showed white count of 9.1, hemoglobin 8.4, hematocrit is 27.5. Platelet count is 192. MCV is 72. Patient clearly still has anemia and is symptomatic. The patient was started on oral iron, but I think he has a problem with iron absorption may be related to his right hemicolectomy. He may have resection of the terminal ileum where the iron is absorbed, or he could have celiac disease which can cause poor iron absorption. The celiac panel result is still pending. My recommendation is to give him IV iron. We will give him iron sucrose 300 milligrams IV today. The rest of the IV iron could be given in our office as he would at least need 1000 milligrams of IV iron. I advised him that he can call our office to make an appointment and I will be more than happy to see him next week and continue iron infusion at our office. The patient will undergo colonoscopy as an outpatient by Dr. Gonzalez. I agree that he does not require any colonoscopy during this admission, as the stools are heme negative. The CEA is normal at 3.2. His liver enzymes were normal except the alkaline phosphatase mildly elevated at 126. The patient has asked questions and these were answered to his satisfaction. Will repeat the CBC tomorrow and if the hemoglobin is less than 9, then will give him two units of blood transfusion with lasix due to his history of CHF, COPD and syncopal episode. Thank you Dr. Wallace for asking my opinion. I will sign off on the case and I will be available as needed. MD JUAN JOSÉ Manley/EMI /10:23 PM /10:39 PM MTDD
[2016-10-28] VITALS (10 sets, daily range): BP systolic 95–139; BP diastolic 50–84; PULSE 82–120; RESP 18–28; TEMP 96.4–98; O2SAT 91–100
[2016-10-28] MEDS: METOPROLOL TARTRATE 50 MG TAB PO SCH ×3 (04:40→20:56)
[2016-10-28] MEDS: ALPRAZolam 0.25 MG TAB PO PRN ×2 (04:40→20:56)
[2016-10-28 06:31] LABS: AUTOMATED NEUTROPHIL # 8.2 TH/MM3 (1.8-7.7); BASOPHIL % 0.5 % (0.0-2.0); EOSINOPHIL # 0.2 TH/MM3 (0-0.4); EOSINOPHIL % 2.3 % (0.0-4.0); HEMATOCRIT 26.8 % (39.0-51.0); LYMPH % 5.6 % (9.0-44.0); LYMPHOCYTE # 0.5 TH/MM3 (1.0-4.8); MEAN CELL VOLUME 72.1 FL (80.0-100.0); MEAN CORPUSCULAR HEMOGLOBIN 21.6 PG (27.0-34.0); MONO % 7.6 % (0.0-8.0); PLATELET COUNT 189 TH/MM3 (150-450); RED BLOOD COUNT 3.72 MIL/MM3 (4.50-5.90); RED CELL DISTRIBUTION WIDTH 18.9 % (11.6-17.2); WHITE BLOOD COUNT 9.6 TH/MM3 (4.0-11.0)
[2016-10-28 06:38] LABS: POTASSIUM 3.9 MEQ/L (3.5-5.1)
[2016-10-28 07:14] LABS: HEMO FLAGS AUTO DIFF
[2016-10-28 07:51] LABS: SCAN/DIFF AUTO DIFF CONFIRMED
[2016-10-28] MEDS: SODIUM CHLORIDE 0.9% FLUSH 5 ML FLUSH FLUSH SCH ×2 (09:00→20:56)
[2016-10-28] MEDS: FUROSEMIDE 40 MG TAB PO SCH (09:13)
[2016-10-28] MEDS: FERROUS SULFATE 325 MG (65 MG ELEMENTAL IRON) TAB PO SCH ×2 (09:13→20:55)
[2016-10-28] MEDS: FAMOTIDINE 20 MG TAB PO SCH ×2 (09:13→20:55)
[2016-10-28] MEDS: ENALAPRIL MALEATE 2.5 MG TAB PO SCH (09:13)
[2016-10-28] MEDS: GABAPENTIN 400 MG CAP PO SCH ×2 (09:13→20:55)
[2016-10-28] MEDS: DIGOXIN 0.125 MG TAB PO SCH (09:13)
[2016-10-28] MEDS: POTASSIUM CHLORIDE 20 MEQ CONTROLLED RELEASE TAB PO SCH (09:13)
[2016-10-28] MEDS: RESP: ALBUTEROL 2.5 MG/IPRATROPIUM 0.5 MG NEB (PRN) NEB (09:21)
[2016-10-28] MEDS ORDERED: PILL SPLITTER OTHER PRN (10:45)
[2016-10-28] MEDS ORDERED: DILTIAZEM HCL 30 MG TAB PO SCH (11:00)
--- NOTE | 2016-10-28 11:23 | HHI.PR ---
Subjective Remarks Patient states that he feels improved compared to admission but still has periods where he gets short of breath. The patient's heart rate is uncontrolled at 120 however apparently he declined telemetry this morning. He is now agreeing to have it put back on. He is agreeable to another 1 unit blood transfusion. Yesterday his heart rate went up to 140 with ambulation. Objective Vitals Vital Signs Date Time Temp Pulse Resp B/P Pulse Ox O2 Delivery O2 Flow Rate FiO2 10/28/16 08:57 98 Nasal Cannula 2.00 10/28/16 08:00 96.4 120 18 124/72 95 10/28/16 04:00 96.8 120 28 139/84 91 10/28/16 00:00 98.0 120 20 129/79 98 10/27/16 20:30 106 10/27/16 20:00 97.8 106 20 133/75 100 10/27/16 16:00 98.2 107 20 116/70 100 10/27/16 12:00 98.1 109 20 117/69 100 10/27/16 11:45 98 Nasal Cannula 2.00 I/O 10/27/16 10/27/16 10/27/16 10/28/16 10/28/16 10/28/16 07:00 15:00 23:00 07:00 15:00 23:00 Intake Total 840 ml 60 ml 120 ml Output Total 850 ml 850 ml 200 ml Balance -850 ml 840 ml -790 ml -80 ml Intake Oral 840 ml 60 ml 120 ml Output Urine Total 850 ml 850 ml 200 ml # Voids 5 1 2 # Bowel Movements 0 0 0 0 Result Diagram: 10/28/1625 10/28/16524 Objective Remarks GENERAL: Well-nourished, well-developed elderly male pale. Patient. SKIN: Warm and dry. HEAD: Normocephalic. EYES: No scleral icterus. No injection or drainage. NECK: Supple, trachea midline. No JVD or lymphadenopathy. CARDIOVASCULAR: Irregularly irregular rate and rhythm without murmurs, gallops, or rubs. RESPIRATORY: Breath sounds equal bilaterally. Mildly increased work of breathing. Crackles at the bases bilaterally. GASTROINTESTINAL: Abdomen soft, non-tender, nondistended. EXTREMITIES: 1+ pedal edema. NEUROLOGICAL: Awake, alert, and oriented x 3. Non-focal. A/P Assessment and Plan 81-year-old male with past medical history of atrial fibrillation, colon cancer status post resection and peripheral neuropathy presents to [facility] ED with complaints of progressive shortness of breath 6 weeks. -Shortness of breath. Likely multifactorial due to CHF/cardiomyopathy, anemia, COPD and atrial fibrillation with uncontrolled heart rate. Continue to address measures below. I spent about 30 minutes discussing with the patient the multifactorial etiology of his shortness of breath and discussed congestive heart failure management in detail with the patient as well as improving his anemia, and controlling his heart rate. -Mild acute systolic CHF exacerbation - BMP was only marginally elevated at 360 , chest x-ray did show some mild interstitial opacities. He received Lasix 60 mg IV in the ED. Continue Lasix by mouth and potassium supplementation. 2-D echocardiogram shows ejection fraction of 25-30%. Continue metoprolol low-dose enalapril. Monitor blood pressure which tends to run low. The patient saw Dr. bernal several years ago on the hospital and was like to follow up with him after discharge. He has an appointment arranged for November 16 at 10:45 AM. -Iron deficiency Anemia in a patient with history of colon cancer resection. Appreciate GI and Dr. Mora's input. Hemoccult was negative. Abdominal CT scan was negative for mass. CEA is not elevated. Patient gives no history of hematochezia or melanotic stools. Apparently he missed his last scheduled colonoscopy with Dr. Mora. His iron is low. Status post transfusion of 1 unit packed red blood cells and hemoglobin is now at 8 for another 1 unit today , status post IV Venofer 1. Will check B-12 level. [address] Mora is planning for colonoscopy as outpatient. He has been seen by hematology Dr. Mason and he is recommended to follow-up as outpatient. -Atrial fibrillation with rapid ventricular rate. Rate is still uncontrolled this morning and that may be in part due to the anemia. Continue digoxin 0.125 mg daily. I will increase metoprolol to 75 mg every 8 hours. He will undergo a walk test to see how his heart rate does on that. Also start Cardizem 30 mg by mouth 4 times a day as needed for heart rate greater than 110. Dr. Royal recommends holding off on anticoagulation until outpatient colonoscopy has been performed. I have also arranged the patient a follow-up visit with Dr. bernal for 11/16 at 10:45 a.m. Intermittent chest pain - resolved. - Continuous cardiac monitoring. Troponin negative 3. COPD without acute exacerbation - c/w supplemental oxygen. Duonebs prn. Walk test today as he is not on home oxygen and and I suspect he will need it. Intermittent chest pain - Continuous cardiac monitoring. Troponin negative 3. Peripheral neuropathy - Patient will be resumed on his home dose of Gabapentin DVT/GI prophylaxis - Lovenox/Rani Malhotra MD Oct 28, 2016 11:23
[2016-10-28] MEDS ORDERED: DIGO0.12 PO (11:30)
[2016-10-28] MEDS ORDERED: DILT31TA PO (11:30)
[2016-10-28] MEDS ORDERED: FERR325T PO (11:30)
[2016-10-28] MEDS ORDERED: POTA20TA5 PO (11:30)
[2016-10-28] MEDS ORDERED: ENAL2.5T PO (11:30)
[2016-10-28] MEDS ORDERED: FURO40TA PO (11:30)
[2016-10-28] MEDS ORDERED: METO-309 PO (11:30)
[2016-10-28] MEDS ORDERED: METOPROLOL TARTRATE 25 MG TAB PO ONE (17:30)
[2016-10-28] MEDS ORDERED: FUROSEMIDE 20 MG/2 ML VIAL IV PUSH SCH (17:30)
[2016-10-28] MEDS: diphenhydrAMINE HCL 25 MG CAP PO SCH (20:55)
[2016-10-29] VITALS (10 sets, daily range): BP systolic 105–121; BP diastolic 57–73; PULSE 83–122; RESP 16–22; TEMP 97.1–99.3; O2SAT 96–100
[2016-10-29] MEDS: METOPROLOL TARTRATE 50 MG TAB PO SCH ×3 (06:22→20:56)
[2016-10-29 07:41] LABS: REVIEW FLAG FINAL
[2016-10-29 07:51] LABS: IGA SERUM 211 mg/dL (81-463); TISSUE TRANSGLUTAMINASE AB IGG ND U/mL (())
[2016-10-29] MEDS: GABAPENTIN 400 MG CAP PO SCH ×2 (08:14→20:56)
[2016-10-29] MEDS: DIGOXIN 0.125 MG TAB PO SCH (08:14)
[2016-10-29] MEDS: FUROSEMIDE 40 MG TAB PO SCH (08:14)
[2016-10-29] MEDS: FERROUS SULFATE 325 MG (65 MG ELEMENTAL IRON) TAB PO SCH ×2 (08:14→20:56)
[2016-10-29] MEDS: FAMOTIDINE 20 MG TAB PO SCH ×2 (08:14→20:56)
[2016-10-29] MEDS: ENALAPRIL MALEATE 2.5 MG TAB PO SCH (08:14)
[2016-10-29] MEDS: SODIUM CHLORIDE 0.9% FLUSH 5 ML FLUSH FLUSH SCH ×2 (08:14→20:56)
[2016-10-29] MEDS: POTASSIUM CHLORIDE 20 MEQ CONTROLLED RELEASE TAB PO SCH (08:14)
--- NOTE | 2016-10-29 16:16 | HHI.PR ---
Subjective Remarks Looks more comfortable since transfusions,but SOB on exertion. No N or V. Objective Vital Signs Date Time Temp Pulse Resp B/P Pulse Ox O2 Delivery O2 Flow Rate FiO2 10/29/16 12:00 97.1 83 16 114/68 100 10/29/16 08:55 97 21 10/29/16 08:53 99 Nasal Cannula 2.00 10/29/16 08:30 110 10/29/16 08:00 98.2 115 16 116/59 96 10/29/16 00:30 98.0 93 20 112/61 100 10/28/16 21:55 97.1 96 20 97/54 99 10/28/16 20:11 97 Nasal Cannula 2.00 10/28/16 20:00 88 10/28/16 20:00 97.6 92 20 111/61 100 10/28/16 16:20 97.0 86 18 95/55 100 10/28/16 16:00 97.0 86 18 98/50 100 I/O 10/28/16 10/28/16 10/28/16 10/29/16 10/29/16 10/29/16 07:00 15:00 23:00 07:00 15:00 23:00 Intake Total 120 ml 440 ml 596 ml 329 ml Output Total 200 ml 125 ml 275 ml Balance -80 ml 440 ml 471 ml 54 ml Intake Oral 120 ml 440 ml 120 ml 60 ml IV Total 55 ml 28 ml Packed Cells 421 ml 241 ml Output Urine Total 200 ml 125 ml 275 ml # Voids 2 3 1 3 # Bowel Movements 0 0 0 0 Result Diagram: 10/29/16 0705 10/28/16 0525 Objective Remarks VS-S Abd: Benign Assessment and Plan Assessment and Plan Stable Plan D/C anytime on Oxygen. F/U with me for OP colonoscopy. F/U Dr Mason for iron infusions Stefan Gonzalez MD Oct 29, 2016 16:16
--- NOTE | 2016-10-29 16:28 | HHI.PR ---
Subjective Remarks Seen and evaluated in follow-up for increased shortness breath and for anemia. Hemoglobin is now 11 After transfusion. Heart rate seems to have improved. Discharge plans and care plan discussed with patient and niece at the bedside. Patient slightly more confused today, but within range for baseline per her niece Objective Vitals Vital Signs Date Time Temp Pulse Resp B/P Pulse Ox O2 Delivery O2 Flow Rate FiO2 10/29/16 12:00 97.1 83 16 114/68 100 10/29/16 08:55 97 21 10/29/16 08:53 99 Nasal Cannula 2.00 10/29/16 08:30 110 10/29/16 08:00 98.2 115 16 116/59 96 10/29/16 00:30 98.0 93 20 112/61 100 10/28/16 21:55 97.1 96 20 97/54 99 10/28/16 20:11 97 Nasal Cannula 2.00 10/28/16 20:00 88 10/28/16 20:00 97.6 92 20 111/61 100 I/O 10/28/16 10/28/16 10/28/16 10/29/16 10/29/16 10/29/16 07:00 15:00 23:00 07:00 15:00 23:00 Intake Total 120 ml 440 ml 596 ml 329 ml Output Total 200 ml 125 ml 275 ml Balance -80 ml 440 ml 471 ml 54 ml Intake Oral 120 ml 440 ml 120 ml 60 ml IV Total 55 ml 28 ml Packed Cells 421 ml 241 ml Output Urine Total 200 ml 125 ml 275 ml # Voids 2 3 1 3 # Bowel Movements 0 0 0 0 Result Diagram: 10/29/16 0705 10/28/16 0525 Imaging Last Impressions Lower Extremity Ultrasound 10/26/16 0000 Signed Impressions: Service Date/Time: Wednesday, October 26, 2016 17:06 - CONCLUSION: No evidence of DVT. Ayaz Jefferson MD Abdomen/Pelvis CT 10/26/16 0000 Signed Impressions: Service Date/Time: Thursday, October 27, 2016 06:45 - CONCLUSION: 1. Small bilateral pleural effusions. 2. Postsurgical changes involving the right colon consistent with partial colectomy. The bowel gas pattern is unremarkable. 3. Small partially calcified splenic artery aneurysm. 4. Status post cholecystectomy. 5. No evidence of metastatic disease. Maury Harrington MD Chest X-Ray 10/25/16 1736 Signed Impressions: Service Date/Time: Tuesday, October 25, 2016 18:05 - CONCLUSION: Nonspecific mild interstitial opacities and very small bilateral pleural effusions. Stefan Isabel MD Objective Remarks GENERAL: This is an elderly well-nourished, well-developed patient, in no apparent distress. CARDIOVASCULAR: Regular rate and rhythm without murmurs, gallops, or rubs. RESPIRATORY: Basilar crackles Breath sounds equal bilaterally. No wheezes, rales , or rhonchi. GASTROINTESTINAL: Abdomen soft, non-tender, nondistended. Normal active bowel sounds MUSCULOSKELETAL: Extremities without clubbing, cyanosis, or edema. NEURO: Alert & Oriented x4 to person, place, time, situation, although slow. Moves all ext x4 A/P Problem List: (1) Anemia ICD Code: D64.9 Status: Acute Plan: Improved after blood transfusion. We'll continue with outpatient follow- up. Her hematology. Patient with iron deficiency anemia and history of colon cancer. Will need outpatient oncology and colorectal surgery follow-up. No evidence of acute bleeding. We'll recheck hemoglobin in a.m. if stable. Likely discharge home (2) COPD (chronic obstructive pulmonary disease) ICD Code: J44.9 Status: Acute Plan: Currently improved. Patient with COPD with mild exacerbation and supplemental oxygen. 90% on exertion on walk test 10/28 (3) Rapid atrial fibrillation ICD Code: I48.91 Status: Acute Plan: Patient with known history of CHF. a Little congested after blood. We' ll add some IV Lasix Patient also with congestive heart failure. We'll continue with digoxin, metoprolol and Cardizem. Cardiology consult appreciated. We'll hold off on anticoagulation until outpatient endoscopy completed. Discharge Planning Likely discharge in a.m. if heart rate remains stable and hemoglobin stable. Problem Qualifiers (1) Anemia: Qualified Code: D64.9 - Anemia, unspecified type Jyothi Corona MD Oct 29, 2016 16:28
[2016-10-29] MEDS ORDERED: FUROSEMIDE 20 MG/2 ML VIAL IV PUSH ONE (16:30)
[2016-10-29 19:51] LABS: ENDOMYSIAL AB TITER ND (<1:5); TISSUE TRANSGLUTAMINASE AB LESS THAN 1 U/mL (())
[2016-10-29] MEDS: RESP: ALBUTEROL 2.5 MG/IPRATROPIUM 0.5 MG NEB (PRN) NEB (20:28)
[2016-10-29] MEDS: ALPRAZolam 0.25 MG TAB PO PRN (20:56)
[2016-10-29] MEDS: diphenhydrAMINE HCL 25 MG CAP PO SCH (20:56)
[2016-10-30] VITALS (9 sets, daily range): BP systolic 111–137; BP diastolic 69–90; PULSE 68–119; RESP 18–22; TEMP 97.4–99; O2SAT 92–100
[2016-10-30] MEDS: METOPROLOL TARTRATE 50 MG TAB PO SCH ×3 (06:28→21:34)
[2016-10-30] MEDS: SODIUM CHLORIDE 0.9% FLUSH 5 ML FLUSH FLUSH SCH ×2 (08:50→21:35)
[2016-10-30] MEDS: POTASSIUM CHLORIDE 20 MEQ CONTROLLED RELEASE TAB PO SCH (08:50)
[2016-10-30] MEDS: FERROUS SULFATE 325 MG (65 MG ELEMENTAL IRON) TAB PO SCH ×2 (08:50→21:34)
[2016-10-30] MEDS: ENALAPRIL MALEATE 2.5 MG TAB PO SCH (08:51)
[2016-10-30] MEDS: FAMOTIDINE 20 MG TAB PO SCH ×2 (08:51→21:00)
[2016-10-30] MEDS: FUROSEMIDE 40 MG TAB PO SCH (08:51)
[2016-10-30] MEDS: DIGOXIN 0.125 MG TAB PO SCH (08:51)
[2016-10-30] MEDS: GABAPENTIN 400 MG CAP PO SCH ×2 (08:51→21:33)
[2016-10-30] MEDS ORDERED: OXYGENTANK NAS.CANULA (11:34)
--- NOTE | 2016-10-30 11:42 | HHI.PR ---
Subjective Remarks Patient seen today in follow-up for anemia and hypoxemia. Encephalopathy appears related to hypoxemia. Patient has been 88% on room air but mentation improved on oxygen by nasal cannula. Hemoglobin improved. Some diarrhea this morning Objective Vitals Vital Signs Date Time Temp Pulse Resp B/P Pulse Ox O2 Delivery O2 Flow Rate FiO2 10/30/16 08:50 2.00 10/30/16 08:45 85 Nasal Cannula 10/30/16 08:29 98 Nasal Cannula 2.00 10/30/16 08:10 88 Nasal Cannula 10/30/16 08:00 98.0 115 22 137/90 92 10/30/16 05:13 97.7 68 18 111/76 93 10/30/16 05:10 93 Room Air 10/30/16 00:16 99.0 100 18 120/78 98 10/30/16 00:00 98 Nasal Cannula 1.00 10/29/16 21:43 103 10/29/16 20:30 98 Nasal Cannula 2.00 10/29/16 20:16 99.3 122 22 121/73 99 10/29/16 20:00 99 Nasal Cannula 2.00 10/29/16 16:00 98.3 90 16 105/57 100 10/29/16 12:00 97.1 83 16 114/68 100 I/O 10/29/16 10/29/16 10/29/16 10/30/16 10/30/16 10/30/16 07:00 15:00 23:00 07:00 15:00 23:00 Intake Total 329 ml 720 ml Output Total 275 ml 500 ml 1150 ml Balance 54 ml 220 ml -1150 ml Intake Oral 60 ml 720 ml IV Total 28 ml Packed Cells 241 ml Output Urine Total 275 ml 500 ml 1150 ml # Voids 3 # Bowel Movements 0 Result Diagram: 10/29/16 0705 10/28/16 0525 Objective Remarks GENERAL: This is an elderly well-nourished, well-developed patient, in no apparent distress. CARDIOVASCULAR: Regular rate and rhythm without murmurs, gallops, or rubs. RESPIRATORY: Basilar crackles Breath sounds equal bilaterally. No wheezes, rales , or rhonchi. GASTROINTESTINAL: Abdomen soft, non-tender, nondistended. Normal active bowel sounds MUSCULOSKELETAL: Extremities without clubbing, cyanosis, or edema. NEURO: Alert & Oriented x4 to person, place, time, situation, although slow. Moves all ext x4 A/P Problem List: (1) Anemia ICD Code: D64.9 Status: Acute Plan: Improved after blood transfusion. We'll continue with outpatient follow- up per hematology. Patient with iron deficiency anemia and history of colon cancer. Will need outpatient oncology and colorectal surgery follow-up. No evidence of acute bleeding. Pending Likely discharge home (2) COPD (chronic obstructive pulmonary disease) ICD Code: J44.9 Status: Acute Plan: Currently improved. Patient with COPD with mild exacerbation and supplemental oxygen. Filled oxygenation independence at rest and will need O2 at home (3) Rapid atrial fibrillation ICD Code: I48.91 Status: Acute Plan: Patient with known history of CHF. a Little congested after blood. We' ll add some IV Lasix Patient also with congestive heart failure. We'll continue with digoxin, metoprolol and Cardizem. Cardiology consult appreciated. We'll hold off on anticoagulation until outpatient endoscopy completed. (4) Loose stools ICD Code: R19.5 Status: Acute Plan: c diff pending Discharge Planning Likely discharge home with [facility] if heart rate remains stable and hemoglobin stable. Problem Qualifiers (1) Anemia: Qualified Code: D64.9 - Anemia, unspecified type Jyothi Corona MD Oct 30, 2016 11:42
[2016-10-30 12:17] LABS: HEMATOCRIT 33.9 % (39.0-51.0)
[2016-10-30 12:20] LABS: REVIEW FLAG FINAL
[2016-10-30] MEDS ORDERED: ACETAMINOPHEN 325 MG TAB PO PRN (14:30)
[2016-10-30] MEDS ORDERED: ACETAMIN 325 MG/BUTALBITAL 50 MG/CAFFEINE 40 MG TAB PO PRN (14:30)
--- NOTE | 2016-10-30 15:21 | HHI.DS ---
[facility] Discharge Summary Admission Date Oct 26, 2016 at 13:13 Discharge Date: Oct 30, 2016 Admitting Diagnosis ATRIAL FIB RAPID, CHF, ANEMIA (1) Anemia ICD Code: D64.9 (2) COPD (chronic obstructive pulmonary disease) ICD Code: J44.9 (3) Rapid atrial fibrillation ICD Code: I48.91 (4) Loose stools ICD Code: R19.5 Procedures none Brief History - From Admission 81-year-old male with past medical history of atrial fibrillation, colon cancer status post resection, COPD and peripheral neuropathy presents to [facility] ED with complaints of progressive shortness of breath 6 weeks. Patient reports that he is short of breath at rest as well as with minimal exertion. He is only able to walk a few steps before becoming profoundly short of breath. He also reports significant swelling in both legs and feet. He generally takes metoprolol 100 mg daily but forgot his dose yesterday. He is not on any type of blood thinner including aspirin. He denies any orthopnea or PND. Patient reports associated intermittent palpitations as well as some mild waxing and waning midsternal chest discomfort. He's passed out for 4-5 times in the past few weeks with complete loss of consciousness. Patient denies any recent illness including any fever, chills, nausea, vomiting or cough. He denies any dizziness, lightheadedness or increased fatigue. He denies any hematuria, dysuria, hematochezia or melena.He reports chronic pain and numbness in his legs and feet due to neuropathy for which he takes gabapentin. He denies any head injury or ongoing headache. 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 Baker over at the [place] for his medical care. In the ED, patient's EKG showed rapid atrial fibrillation. Patient's heart rate was 132. He was given 5 mg of IV metoprolol. Chest x-ray revealed nonspecific mild interstitial opacities and small bilateral pleural effusions. BNP is mildly elevated at 367. CBC/BMP: 10/30/16 1204 10/28/16 0525 Significant Findings Laboratory Tests Test 10/28/16 10/29/16 10/30/16 05:25 07:05 12:04 Red Blood Count 3.72 MIL/MM3 (4.50-5.90) Hemoglobin 8.0 GM/DL 11.3 GM/DL 10.5 GM/DL (13.0-17.0) (13.0-17.0) (13.0-17.0) Hematocrit 26.8 % 36.0 % 33.9 % (39.0-51.0) (39.0-51.0) (39.0-51.0) Mean Corpuscular Volume 72.1 FL (80.0-100.0) Mean Corpuscular Hemoglobin 21.6 PG (27.0-34.0) Mean Corpuscular Hemoglobin 29.9 % Concent (32.0-36.0) Red Cell Distribution Width 18.9 % (11.6-17.2) Neutrophils (%) (Auto) 84.0 % (16.0-70.0) Lymphocytes (%) (Auto) 5.6 % (9.0-44.0) Neutrophils # (Auto) 8.2 TH/MM3 (1.8-7.7) Lymphocytes # (Auto) 0.5 TH/MM3 (1.0-4.8) Estimat Glomerular Filtration 82 ML/MIN (>89) Rate Random Glucose 107 MG/DL (74-106) Calcium Level 8.4 MG/DL (8.5-10.1) Imaging Last Impressions Lower Extremity Ultrasound 10/26/16 0000 Signed Impressions: Service Date/Time: Wednesday, October 26, 2016 17:06 - CONCLUSION: No evidence of DVT. Ayaz Jefferson MD Abdomen/Pelvis CT 10/26/16 0000 Signed Impressions: Service Date/Time: Thursday, October 27, 2016 06:45 - CONCLUSION: 1. Small bilateral pleural effusions. 2. Postsurgical changes involving the right colon consistent with partial colectomy. The bowel gas pattern is unremarkable. 3. Small partially calcified splenic artery aneurysm. 4. Status post cholecystectomy. 5. No evidence of metastatic disease. Maury Harrington MD Chest X-Ray 10/25/16 0124 Signed Impressions: Service Date/Time: Tuesday, October 25, 2016 18:05 - CONCLUSION: Nonspecific mild interstitial opacities and very small bilateral pleural effusions. Stefan Isabel MD PE at Discharge GENERAL: This is an elderly well-nourished, well-developed patient, in no apparent distress. CARDIOVASCULAR: Regular rate and rhythm without murmurs, gallops, or rubs. RESPIRATORY: Basilar crackles Breath sounds equal bilaterally. No wheezes, rales , or rhonchi. GASTROINTESTINAL: Abdomen soft, non-tender, nondistended. Normal active bowel sounds MUSCULOSKELETAL: Extremities without clubbing, cyanosis, or edema. NEURO: Alert & Oriented x4 to person, place, time, situation, although slow. Moves all ext x4 Pt update on day of discharge Please see daily progress note Hospital Course Patient's 81-year-old gentleman was seen and treated for anemia and hypoxemia. He did have some atrial fibrillation with rapid ventricular response which resolved. Patient required blood transfusion. He was seen by hematology and GI services which recommended follow-up as an outpatient. He had some loose stools which are sensitive for C. difficile. He did require oxygen at discharge due to hypoxemia. He has improved quite a bit and will be discharged home home health services. This discussed at length with patient, nursing team as well as his niece Pt Condition on Discharge: Good Discharge Disposition: Disch w/ Home Health Serv Discharge Time: > 30 minutes Discharge Instructions DIET: Follow Instructions for: As Tolerated, No Restrictions Activities you can perform: Regular-No Restrictions Follow up Referrals: Cardiology with Boyd Fisher MD Colorectal Surgery - 2 Weeks with Stefan Gonzalez MD Oncology - 1 Month with Jasvir Mason MD PCP Follow-up - Next Day SNF/[facility]/ with [facility] New Medications: Oxygen tank (Oxygen tank) 1 Ea Tank 2 LITER EMI.CANULA CONTINUOUS Oxygen Concentrator Portable Gaseous 2 L/min via Nasal Cannula Continuous For 99 months HYPOXEMIA PREVENTION #1 CYLINDER Digoxin (Digoxin) 0.125 Mg Tab 0.125 MG PO DAILY control heart rate #30 TAB Diltiazem (Cardizem) 30 Mg Tab 30 MG PO QID PRN heart rate>110 #120 TAB Enalapril (Enalapril) 2.5 Mg Tab 2.5 MG PO DAILY build heart muscle #30 TAB Ferrous Sulfate (Ferrous Sulfate) 325 Mg Tab 325 MG PO BID Build Red Blood Cells #60 TAB Furosemide (Furosemide) 40 Mg Tab 40 MG PO DAILY for fluid retention #30 TAB Metoprolol Tartrate (Lopressor) 50 Mg Tab 75 MG PO Q8HR Regulate Heart Beat #90 TAB Potassium Chloride Microencaps (Potassium Chloride Microencaps) 20 Meq Tab 20 MEQ PO DAILY Electrolyte Replacement #30 TAB Continued Medications: Gabapentin (Gabapentin) 400 Mg Cap 400 CAP PO BID PRN neuropathy #30 Ref 0 CAP Discontinued Medications: Atenolol (Atenolol) 100 Mg Tab 100 MG PO DAILY Blood Pressure Management #30 Ref 0 TAB Jyothi Corona MD Oct 30, 2016 15:21
[2016-10-30 17:14] LABS: C. DIFF EPI 027 PRESUMPTIVE NEGATIVE (NEGATIVE); C. DIFF TOXIN PCR NEGATIVE (NEGATIVE)
[2016-10-30] MEDS ORDERED: DILTIAZEM-CD 120 MG CAP ER PO ONE (17:30)
[2016-10-30] MEDS: diphenhydrAMINE HCL 25 MG CAP PO SCH (21:34)
[2016-10-31] VITALS: BP 116/68; PULSE 74; RESP 18; TEMP 96.7; O2SAT 100
[2016-10-31 04:00] VITALS: BP 142/78; PULSE 70; RESP 18; TEMP 95.9; O2SAT 98
[2016-10-31] MEDS: METOPROLOL TARTRATE 50 MG TAB PO SCH (06:09)
[2016-10-31 08:00] VITALS: BP 125/67; PULSE 83; RESP 21; TEMP 95.4; O2SAT 100; O2SAT 96
[2016-10-31] MEDS: SODIUM CHLORIDE 0.9% FLUSH 5 ML FLUSH FLUSH SCH (09:00)
[2016-10-31] MEDS: POTASSIUM CHLORIDE 20 MEQ CONTROLLED RELEASE TAB PO SCH (09:10)
[2016-10-31] MEDS: FAMOTIDINE 20 MG TAB PO SCH (09:10)
[2016-10-31] MEDS: GABAPENTIN 400 MG CAP PO SCH (09:10)
[2016-10-31] MEDS: DIGOXIN 0.125 MG TAB PO SCH (09:11)
[2016-10-31] MEDS: FERROUS SULFATE 325 MG (65 MG ELEMENTAL IRON) TAB PO SCH (09:11)
[2016-10-31] MEDS: ENALAPRIL MALEATE 2.5 MG TAB PO SCH (09:11)
[2016-10-31] MEDS: FUROSEMIDE 40 MG TAB PO SCH (09:11)
[2016-10-31 09:30] VITALS: PULSE 90
[2016-10-31 10:18] LABS: HEMOGLOBIN A1a 0.7 %; HEMOGLOBIN A1b 1.5 %; HEMOGLOBIN Ao 86.1 %; HEMOGLOBIN LA1C 1.8 %; HEMOGLOBIN P3 3.4 %
[2016-10-31] MEDS ORDERED: OXYGENTANK NAS.CANULA (11:58)
--- NOTE | 2016-10-31 12:10 | HHI.PR ---
Subjective Remarks Follow-up for anemia, A.Fib, hypoxemia. Patient states he is weak, but is breathing okay on the oxygen. Objective Vitals Vital Signs Date Time Temp Pulse Resp B/P Pulse Ox O2 Delivery O2 Flow Rate FiO2 10/31/16 09:30 90 10/31/16 09:17 99 Nasal Cannula 2.00 10/31/16 08:00 95.4 83 21 125/67 96 10/31/16 08:00 100 Nasal Cannula 2.00 10/31/16 04:00 95.9 70 18 142/78 98 10/31/16 00:00 96.7 74 18 116/68 100 10/30/16 20:00 97.7 91 18 114/73 100 10/30/16 20:00 80 10/30/16 19:47 98 Nasal Cannula 2.00 10/30/16 19:00 100 2.00 10/30/16 16:00 97.4 119 22 122/86 99 I/O 10/30/16 10/30/16 10/30/16 10/31/16 10/31/16 10/31/16 07:00 15:00 23:00 07:00 15:00 23:00 Intake Total 480 ml Output Total 1150 ml 700 ml 350 ml Balance -1150 ml -700 ml 130 ml Intake Oral 480 ml Output Urine Total 1150 ml 700 ml 350 ml # Voids 2 2 # Bowel Movements 1 0 0 Result Diagram: 10/30/16 1204 10/28/16 0525 Imaging Last Impressions Lower Extremity Ultrasound 10/26/16 0000 Signed Impressions: Service Date/Time: Wednesday, October 26, 2016 17:06 - CONCLUSION: No evidence of DVT. Ayaz Jefferson MD Abdomen/Pelvis CT 10/26/16 0000 Signed Impressions: Service Date/Time: Thursday, October 27, 2016 06:45 - CONCLUSION: 1. Small bilateral pleural effusions. 2. Postsurgical changes involving the right colon consistent with partial colectomy. The bowel gas pattern is unremarkable. 3. Small partially calcified splenic artery aneurysm. 4. Status post cholecystectomy. 5. No evidence of metastatic disease. Maury Harrington MD Chest X-Ray 10/25/16 3056 Signed Impressions: Service Date/Time: Tuesday, October 25, 2016 18:05 - CONCLUSION: Nonspecific mild interstitial opacities and very small bilateral pleural effusions. Stefan Isabel MD Objective Remarks GENERAL: Elderly male no apparent distress sitting on the side of bed rest dressed to go home. CARDIOVASCULAR: Regular rate and rhythm. RESPIRATORY: No accessory muscle use. Coarse crackles at the bases bilaterally. O2 via NC. GASTROINTESTINAL: Abdomen soft, non-tender, nondistended. NEUROLOGICAL: Awake and alert. Motor grossly within normal limits. Normal speech. PSYCHIATRIC: Appropriate mood and affect. Procedures none Urinary Catheter: No Vascular Central Line Catheter: No A/P Problem List: (1) Anemia ICD Code: D64.9 Status: Acute (2) COPD (chronic obstructive pulmonary disease) ICD Code: J44.9 Status: Acute (3) Rapid atrial fibrillation ICD Code: I48.91 Status: Acute (4) Loose stools ICD Code: R19.5 Status: Acute Assessment and Plan Anemia: -Improved after blood transfusion. Hb 10.5. We'll continue with outpatient follow-up per hematology. Patient with iron deficiency anemia and history of colon cancer. Will need outpatient oncology and colorectal surgery follow-up. No evidence of acute bleeding. -Hematology consultation appreciated. Patient received IV iron. COPD: Chest x-ray with nonspecific mild interstitial opacities and very small bilateral pleural effusions. -Patient with mild exacerbation -Failed oxygenation walk test and will need O2 at home 2L. Rapid atrial fibrillation: Improved. -Continue with digoxin, metoprolol and Cardizem. Cardiology consult appreciated. We'll hold off on anticoagulation until outpatient endoscopy completed. CHF: -Patient with known history of CHF, had some congestion after blood transfusion. Received Lasix. -Echo with EF 25-30%. -Continue management with LEOBARDO, BB, Lasix, Loose stools: -C diff negative Discharge Planning Patient to be discharged home with [facility] with niece today. O2 has been arranged. Problem Qualifiers (1) Anemia: Qualified Code: D64.9 - Anemia, unspecified type Inés Donovan Oct 31, 2016 12:10
[2016-11-05] MEDS ORDERED: OXYGENTANK NAS.CANULA ×2 (14:59→16:34)
--- NOTE | 2016-11-11 10:38 | RSPPFT ---
DATE OF PROCEDURE: 10/27/16 COMMENTS: Spirometry with FVC of 1.6, FEV1 of 0.7, FEV1/FVC ratio at 47%. Flow volume loop suggests airways obstruction. IMPRESSION: 1. Severe airways obstruction. 2. Positive and significant response to acutely inhaled bronchodilator.
--- NOTE | 2016-11-17 09:34 | RSPPFT ---
DATE OF PROCEDURE: 10/27/16 COMMENTS: Spirometry shows FVC of 1.6 at 34% of predicted, FEV1 of 0.7 at 22%, FEV1/FVC ratio is decreased. Flow is decreased at FEF 25, FEF 75 and FEF 25-75. There is a good response after bronchodilator treatment. Flow volume loop indicates an obstructive pattern. IMPRESSION: 1. Very severe obstructive lung disease. 2. Good response after bronchodilator treatment.
== END 2016-10-31 12:49 | disposition home or self-care (01) | DRG 811 ==
LOC: PHED 16:59 → INTOOBSV 19:24 → PHEDA 19:24 → PH3B 21:15 → OBSVTOIN 10-26 13:13 → PH3B 10-30 17:02
PROVIDERS: ADMIT Hospitalist; ATTEND Hospitalist
PROC: 30233N1 Transfusion of Nonautologous Red Blood Cells into Peripheral Vein, Percutaneous Approach (ICD-10-PCS; principal; 2016-10-26)
DX: D50.9 Iron deficiency anemia, unspecified (principal); I50.23 Acute on chronic systolic (congestive) heart failure; J44.1 Chronic obstructive pulmonary disease with (acute) exacerbation; G62.9 Polyneuropathy, unspecified; I48.2 Chronic atrial fibrillation; Z87.891 Personal history of nicotine dependence; Z85.038 Personal history of other malignant neoplasm of large intestine
CPT/HCPCS: 36430; 71010; 74177; 80048; 80053; 81001; 82272; 82378; 82550; 82607; 82728; 82784; 83036; 83516; 83540; 83550; 83735; 83880; 84443; 84484; 85014; 85018; 85025; 85610; 85730; 86850; 86900; 86901; 86920; 87493; 93005; 93306; 93970; 94060; 94620; 94640; 94664; 96374; 96375; G0378; J1650; J1756; J1940; J2270; J3475; J7050; P9016; Q9963; Q9967